=== PATIENT | male | born 1960 | race Caucasian/White ===

== ENCOUNTER → 2020-09-20 | Outpatient (CLI) | payer MEDICARE ==
[2015-06-21 20:39] VITALS: BP 130/81
[~2020-09-20] MED LIST: AMITRIPTYLINE H10 M1 PO; AMITRIPTYLINE H10 M3 PO; BACLOFEN10 M1 PO; COUMADIN 22.5 MG/TAB PO; COUMADIN5 MG PO; DETROL LA2 MG PO; FLOMAX 0.40.4 MG/CAP PO; LIORESAL 1010 MG/TAB PO; NORCO 325 MG-51 TA1 PO; NORCO 325 MG-51 TAB PO; PEPCID20 M1 PO; STOOL SOFTENER100 M1 PO; TIZANIDINE2 MG PO; TOPAMAX 25MG25 M1 PO; ZANAFLEX CAPSULE2 MG PO
== END ==
LOC: RAD 15:16
DX: N20.0 Calculus of kidney (principal); N30.90 Cystitis, unspecified without hematuria

== ENCOUNTER 2023-08-28 17:08 | Emergency (ER) | payer MEDICARE ==
[2023-08-28 19:30] VITALS: BP 101/61
== END 2023-08-28 19:30 | disposition home or self-care (01) ==
LOC: ED 17:08
DX: S01.81XA Laceration without foreign body of other part of head, initial encounter (principal); Z79.01 Long term (current) use of anticoagulants; W31.0XXA Contact with mining and earth-drilling machinery, initial encounter